=== PATIENT | male | born 1930 | race Caucasian/White ===

== ENCOUNTER 2016-07-17 17:55 | Emergency (ER) | payer MEDICARE, OTHER ==
[~2016-07-17] VITALS: Ht 175.3 cm; Wt 77.0 kg
[~2016-07-17 17:55] MED LIST: ASPI81TA82 PO; ATOR20TA42 PO; CALC600T44 PO; FEXO180 PO; GLUC500C3 PO; JALYCAP PO; MULT-65 PO
[2016-07-17 18:04] VITALS: BP 116/70; PULSE 81; RESP 16; TEMP 97.8; O2SAT 97
[2016-07-17] MEDS ORDERED: ASPI81CH CHEW (18:17)
[2016-07-17] MEDS ORDERED: CELE200C PO (18:17)
[2016-07-17] MEDS ORDERED: FEXO15TA PO (18:17)
[2016-07-17] MEDS ORDERED: JALYCAP PO (18:17)
[2016-07-17] MEDS ORDERED: LIPI20TA PO (18:17)
[2016-07-17] MEDS ORDERED: ERYTOIN10 EACH EYE (19:03)
--- NOTE | 2016-07-17 19:03 | PD ---
HPI Chief Complaint: Eye Problems/Injury Time Seen by Provider: 18:45 Travel History International Travel<30 days: No Contact w/Intl Traveler<30days: No Traveled to known affect area: No History of Present Illness HPI 86-year-old male presents to the emergency room for evaluation of bilateral eye itchiness, copious purulent drainage, and redness for the past 2 days. Symptoms started simultaneously. States he has history of hayfever and was outside all day 4 days ago but symptoms did not start until 2 days after that. This morning when he woke up, they were practically glued shut. He has been applying [id number] Visine. Patient denies eye pain, photophobia, or changes in visual acuity. Patient has history of macular degeneration of the right eye and previous cataract surgery. States he has difficulty seeing at baseline and vision is no worse today than normal. He does not wear contacts. PFSH Past Medical History Heart Rhythm Problems: No Cancer: Yes (skin) Cardiac Catheterization: No Cardiovascular Problems: No High Cholesterol: Yes Congestive Heart Failure: No Diabetes: No Diminished Hearing: No Endocrine: No Glaucoma: No Genitourinary: No Hepatitis: No Hiatal Hernia: No Hypertension: No Immune Disorder: No Medical other: Yes (ARTHRITIS) Musculoskeletal: Yes Neurologic: No Reproductive: No Respiratory: No Immunizations Current: Yes Thyroid Disease: No Tetanus Vaccination: < 5 Years Influenza Vaccination: Yes Past Surgical History Abdominal Surgery: No AICD: No Body Medical Devices: SCREW RIGHT RING FINGER Cardiac Surgery: No Coronary Artery Bypass Graft: No Ear Surgery: No Endocrine Surgery: No Eye Surgery: No Genitourinary Surgery: Yes (TURP) Gynecologic Surgery: No Joint Replacement: No Oral Surgery: Yes (T&A) Pacemaker: No Thoracic Surgery: No Other Surgery: Yes Social History Alcohol Use: Yes (1 DRINK PER EVENING) Tobacco Use: No Substance Use: No Allergies-Medications (Allergen,Severity, Reaction): Coded Allergies: Contrast Media (Verified Allergy, Severe, Anaphylaxis, 07/17/16) Reported Meds & Prescriptions Reported Meds & Active Scripts Active Erythromycin Opth Oint 5 Mg/Gm Oint 1 Applic EACH EYE Q6HR Reported Brianne (Dutasteride-Tamsulosin) 0.5-0.4 Mg Cap 1 Cap PO DAILY Aspirin 81 Mg Chew 81 Mg CHEW DAILY Celebrex (Celecoxib) 200 Mg Cap 200 Mg PO BID Lipitor (Atorvastatin Calcium) 20 Mg Tab 20 Mg PO HS Radha Allergy (Fexofenadine HCl) 180 Mg Tab 180 Mg PO DAILY Review of Systems Except as stated in HPI: all other systems reviewed are Neg Physical Exam Narrative GENERAL: Well-nourished, well-developed male in no acute distress. Afebrile. Ambulatory. SKIN: Warm and dry. HEAD: Normocephalic. EYES: PERRL, EOMI. No scleral icterus. Bilateral injection, right worse than left. Bilateral purulent, green colored discharge, right worse than left. Fluorescein staining reveals no foreign body, corneal abrasion, or corneal ulceration. There is mild bilateral lower lid edema. Visual acuity is 20/40 in the left and 20/200 in the right. NECK: Supple, trachea midline. No JVD or lymphadenopathy. Data Data Last Documented VS Vital Signs Date Time Temp Pulse Resp B/P Pulse Ox O2 Delivery O2 Flow Rate FiO2 07/17/16 18:04 97.8 81 16 116/70 97 MDM Medical Decision Making Medical Screen Exam Complete: Yes Emergency Medical Condition: Yes Medical Record Reviewed: Yes Differential Diagnosis Allergic Conjunctivitis versus bacterial conjunctivitis versus scleritis Narrative Course 86-year-old male presents to the emergency room for evaluation of bilateral eye redness, drainage, and irritation/itchiness for the past 2 days. Will consult with his eyes glued shut this morning. Patient has history of hayfever and spent all day outside prior to onset of symptoms. Physical exam reveals bilateral injection and green purulent drainage, right worse than left. No evidence of foreign body, corneal abrasion, or ulceration. Visual acuity is 20/ 40 in the left and 20/200 in the right which is baseline for patient. No photophobia on exam. EOMI without pain. History and physical exam are most consistent with allergic conjunctivitis. Patient will be treated empirically for bacterial conjunctivitis with erythromycin eye ointment. Told to follow up with a primary care physician and/or customer engagement manager or return for worsening symptoms. He understands and agrees to plan. Diagnosis Primary Impression: Conjunctivitis Qualified Code: H10.33 - Acute conjunctivitis of both eyes, unspecified acute conjunctivitis type Referrals: [employer] [employer] Primary Care Physician Patient Instructions: Conjunctivitis (ED), General Instructions Additional Instructions: Rest and drink plenty of fluids. Use ointment as directed for 7 days. Follow-up with a primary care physician and/or customer engagement manager. Return to the emergency room for worsening symptoms. Med/Other Pt SpecificInfo: Prescription(s) given Scripts Erythromycin Opth Oint 5 Mg/Gm Oint1 Applic EACH EYE Q6HR #1 TUBE Ref 0 Prov:Mikael Mijares MD 07/17/16 Disposition: 01 DISCHARGE HOME Condition: Stable Moraima Montesinos Jul 17, 2016 19:03
== END 2016-07-17 19:13 | disposition home or self-care (01) ==
LOC: PHEFT 17:55
DX: H10.33 Unspecified acute conjunctivitis, bilateral (principal)
CPT/HCPCS: 99282

== ENCOUNTER → 2016-12-03 | Outpatient (CLI) | payer MEDICARE, OTHER ==
[~2016-12-03] MED LIST changes: +ASPI81CH CHEW; -ASPI81TA82 PO; -ATOR20TA42 PO; -CALC600T44 PO; +CELE200C PO; +ERYTOIN10 EACH EYE; +FEXO15TA PO; -FEXO180 PO; -GLUC500C3 PO; +LIPI20TA PO; -MULT-65 PO
[2016-12-03 09:14] LABS: AUTOMATED NEUTROPHIL # 3.8 TH/MM3 (1.8-7.7); BASOPHIL % 0.4 % (0.0-2.0); EOSINOPHIL # 0.1 TH/MM3 (0-0.4); EOSINOPHIL % 1.6 % (0.0-4.0); HEMATOCRIT 39.7 % (39.0-51.0); HEMO FLAGS DIFF FINAL; LYMPH % 25.3 % (9.0-44.0); LYMPHOCYTE # 1.6 TH/MM3 (1.0-4.8); MEAN CELL VOLUME 94.4 FL (80.0-100.0); MEAN CORPUSCULAR HEMOGLOBIN 31.9 PG (27.0-34.0); MEAN CORPUSCULAR HGB CONC 33.8 % (32.0-36.0); NEUT % 60.7 % (16.0-70.0); PLATELET COUNT 169 TH/MM3 (150-450); RED BLOOD COUNT 4.21 MIL/MM3 (4.50-5.90); RED CELL DISTRIBUTION WIDTH 13.8 % (11.6-17.2); WHITE BLOOD COUNT 6.3 TH/MM3 (4.0-11.0)
[2016-12-03 09:43] LABS: ANION GAP 7 MEQ/L (5-15); BICARBONATE 27.9 MEQ/L (21.0-32.0); BLOOD UREA NITROGEN 17 MG/DL (7-18); CHLORIDE 106 MEQ/L (98-107); GLOMERULAR FILTRATION RATE 61 ML/MIN (>89); GLUCOSE,FASTING 92 MG/DL (74-99); SODIUM (NA) 141 MEQ/L (136-145)
[2016-12-03 09:49] LABS: ALKALINE PHOSPHATASE 62 U/L (45-117); ALT (GPT) 23 U/L (12-78); AST (GOT) 27 U/L (15-37); HDL CHOLESTEROL 55.2 MG/DL (40.0-60.0); LDL CHOLESTEROL 67 MG/DL (0-99); TOTAL BILIRUBIN ADULT 0.8 MG/DL (0.2-1.0)
== END ==
LOC: PLAB 06:51
PROVIDERS: ATTEND Family Medicine
DX: E78.2 Mixed hyperlipidemia (principal); Z79.899 Other long term (current) drug therapy
CPT/HCPCS: 36415; 80053; 80061; 85025

== ENCOUNTER → 2017-03-20 | Outpatient (CLI) | payer MEDICARE, OTHER | LOC: PHSDC 09:06 | PROVIDERS: ATTEND Ophthalmology | DX: H26.491 Other secondary cataract, right eye (principal); M81.0 Age-related osteoporosis without current pathological fracture; H43.813 Vitreous degeneration, bilateral; Z96.1 Presence of intraocular lens; H35.3230 Exudative age-related macular degeneration, bilateral, stage unspecified; B02.9 Zoster without complications; Z85.828 Personal history of other malignant neoplasm of skin ==

== ENCOUNTER → 2017-04-10 | Outpatient (CLI) | payer MEDICARE, OTHER ==
--- NOTE | 2017-03-18 14:56 | MH ---
cc: BAILEE CORREA DATE OF ADMISSION: 04/10/2017 ADMISSION DIAGNOSIS Cloudy posterior capsule. right eye. HISTORY OF PRESENT ILLNESS This 87-year-old white male is coming through [facility] for the purpose of a YAG laser posterior capsulotomy of the right eye. He is status post cataract surgery with intraocular lens implant on the right eye in 2014. He has done well postoperatively but now notices decreasing visual acuity and was found to have a cloudy posterior capsule in the right eye. He has elected to have a YAG laser posterior capsulotomy at this time in the right eye. 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 PAST MEDICAL HISTORY The patient has a history of cholesterol problems, arthritis, osteoporosis, allergies, hernia on the left side, shingles on the right arm, chest, underarm and back. PAST SURGICAL HISTORY 1. Tonsillectomy. 2. Prostate surgery. 3. Colonoscopy. 4. Skin cancer surgery. 5. Finger surgery. 6. Pterygiectomy, both eyes. 7. The above-mentioned cataract surgery in the right eye. 8. Basal cell carcinoma removal on the left leg. 9. Hernia repair. MEDICATIONS Daily medications include: 1. Lipitor. 2. Brianne. 3. Celebrex. 4. Radha. 5. Baby aspirin. 6. Multivitamins. 7. Calcium. 8. Vitamin-D. 9. Glucosamine. 10. AREDS 2 ocular vitamins. ALLERGIES HE IS ALLERGIC TO IV IODINE. FAMILY HISTORY, SOCIAL HISTORY, REVIEW OF SYSTEMS Noncontributory. OCULAR EXAMINATION On ocular exam the patient's best-corrected visual acuity is 20/200 in the right eye and 20/40 in the left. Visual botello are full to confrontation testing. Extraocular muscle exam reveals full versions with orthophoria at distance and near. Pupils are 3.5 mm in the right eye, 2.5 mm in the left, round and reactive to light without afferent defect. Anterior segment examination shows the patient to be status post pterygiectomy in both eyes and there are some corneal opacities on the left cornea. A posterior chamber intraocular lens in place in the right eye with a cloudy posterior capsule. Nuclear sclerotic and cortical cataract changes are present in the left eye. Intraocular pressure is 10 in the right eye and 14 in the left by applanation tonometry. Dilated fundus exam reveals sharp disks with cup-to-disk ratio of 0.3 in the right eye and 0.4 in the left. There is an epiretinal membrane in the right eye and retinal pigment epithelial changes as well. There is some granularity in the left macula. A posterior vitreous detachment is present in both eyes. An atrophic area is noted and pigmentary changes inferiorly in both eyes. 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 IMPRESSION 1. Cloudy posterior capsule, right eye. 2. Pseudophakia, right eye. 3. Cataract, left eye. 4. Posterior vitreous detachment, both eyes. 5. Epiretinal membrane, right macula. 6. 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 PLAN YAG laser posterior capsulotomy of the right eye through [facility]. MD GABRIELLE Aguirre/FLORIDALMA /1:35 PM /2:53 PM ALE
[~2017-04-10] MED LIST changes: +FLUOROMETHOLONE 0.25% OPHT SUSP 5 ML BTL RIGHT EYE ONE; +PHENYLEPHRINE HCL 2.5% OPTH SOLN 2 ML BTL RIGHT EYE ONE; +PROPARACAINE HCL 0.5% OPHT SOLN 15 ML BTL RIGHT EYE ONE; +TROPICAMIDE 1% OPHT SOLN 15 ML BTL RIGHT EYE ONE
--- NOTE | 2017-04-10 08:57 | MP ---
cc: BAILEE LUNA DATE OF SURGERY: 04/10/2017 PREOPERATIVE DIAGNOSIS Cloudy posterior capsule, right eye. POSTOPERATIVE DIAGNOSIS Cloudy posterior capsule, right eye. OPERATION YAG laser posterior capsulotomy, right eye. SURGEON Bailee Luna MD ANESTHESIA Topical. COMPLICATIONS None. INDICATIONS See history and physical previously dictated. PROCEDURE The patient arrived at the [facility]. Blood pressure 112/72, pulse 57, respirations 16. A drop of Alphagan P and Mydriacyl were instilled in the right eye. The patient was seated at the YAG laser. A drop of Alcaine was instilled in the right eye and a YAG laser posterior capsulotomy lens was placed on the anterior surface of the right cornea. YAG laser posterior capsulotomy was carried out utilizing 56 exposures of 1.6 millijoules. An adequate opening was seen following the procedure. A drop of Alphagan P was instilled topically. The patient was given a prescription for a topical steroid to be used four times per day and has an appointment for follow up on the first postoperative day in my office. [facility]. Bailee Luna MD STEWARD/STEWARDESS/BT /8:26 AM /8:48 AM .2
== END ==
LOC: PHSDC 07:12
PROVIDERS: ATTEND Ophthalmology
DX: H26.491 Other secondary cataract, right eye (principal)

== ENCOUNTER → 2017-07-02 | Outpatient (CLI) | payer MEDICARE ==
[~2017-07-02] MED LIST changes: +ASPI-516 CHEW; -ASPI81CH CHEW; -FLUOROMETHOLONE 0.25% OPHT SUSP 5 ML BTL RIGHT EYE ONE; -PHENYLEPHRINE HCL 2.5% OPTH SOLN 2 ML BTL RIGHT EYE ONE; -PROPARACAINE HCL 0.5% OPHT SOLN 15 ML BTL RIGHT EYE ONE; -TROPICAMIDE 1% OPHT SOLN 15 ML BTL RIGHT EYE ONE
[2017-07-02 13:49] LABS: DIRECT BILIRUBIN ADULT 0.2 MG/DL (0.0-0.2)
[2017-07-02 15:59] LABS: CHOLESTEROL/ HDL RATIO 2.45 RATIO; HDL CHOLESTEROL 65.1 MG/DL (40.0-60.0); INDIRECT BILIRUBIN 0.4 MG/DL (0.0-0.8); TOTAL BILIRUBIN ADULT 0.6 MG/DL (0.2-1.0); TOTAL PROTEIN 7.5 GM/DL (6.4-8.2)
== END ==
LOC: PLAB 10:28
PROVIDERS: ATTEND Family Medicine
DX: E78.2 Mixed hyperlipidemia (principal); Z79.899 Other long term (current) drug therapy
CPT/HCPCS: 36415; 80061; 80076

== ENCOUNTER → 2017-11-26 | Outpatient (CLI) | payer MEDICARE ==
[2017-11-26 10:10] LABS: AUTOMATED NEUTROPHIL # 3.3 TH/MM3 (1.8-7.7); BASOPHIL % 0.5 % (0.0-2.0); EOSINOPHIL # 0.1 TH/MM3 (0-0.4); EOSINOPHIL % 2.3 % (0.0-4.0); HEMATOCRIT 41.2 % (39.0-51.0); HEMOGLOBIN 13.8 GM/DL (13.0-17.0); LYMPH % 24.9 % (9.0-44.0); LYMPHOCYTE # 1.4 TH/MM3 (1.0-4.8); MEAN CELL VOLUME 94.7 FL (80.0-100.0); MEAN CORPUSCULAR HEMOGLOBIN 31.7 PG (27.0-34.0); MEAN CORPUSCULAR HGB CONC 33.5 % (32.0-36.0); MEAN PLATELET VOLUME 8.4 FL (7.0-11.0); MONO % 12.9 % (0.0-8.0); MONOCYTE # 0.7 TH/MM3 (0-0.9); NEUT % 59.4 % (16.0-70.0); PLATELET COUNT 186 TH/MM3 (150-450); RED BLOOD COUNT 4.35 MIL/MM3 (4.50-5.90); RED CELL DISTRIBUTION WIDTH 13.5 % (11.6-17.2); WHITE BLOOD COUNT 5.6 TH/MM3 (4.0-11.0)
[2017-11-26 10:31] LABS: ALBUMIN 4.2 GM/DL (3.4-5.0); AST (GOT) 24 U/L (15-37); BICARBONATE 25.9 MEQ/L (21.0-32.0); BLOOD UREA NITROGEN 19 MG/DL (7-18); CALCIUM 8.9 MG/DL (8.5-10.1); CHLORIDE 107 MEQ/L (98-107); CREATININE 1.24 MG/DL (0.60-1.30); GLOMERULAR FILTRATION RATE 55 ML/MIN (>89); GLUCOSE,FASTING 95 MG/DL (74-99); SODIUM (NA) 142 MEQ/L (136-145)
[2017-11-26 10:32] LABS: CHOLESTEROL 154 MG/DL (120-200)
[2017-11-26 10:38] LABS: ALKALINE PHOSPHATASE 61 U/L (45-117); ALT (GPT) 21 U/L (12-78); HDL CHOLESTEROL 51.3 MG/DL (40.0-60.0); LDL CHOLESTEROL 73 MG/DL (0-99); TOTAL BILIRUBIN ADULT 0.5 MG/DL (0.2-1.0); TOTAL PROTEIN 7.5 GM/DL (6.4-8.2); TRIGLYCERIDES 151 MG/DL (42-150)
== END ==
LOC: PLAB 06:44
PROVIDERS: ATTEND Family Medicine
DX: E78.2 Mixed hyperlipidemia (principal); Z79.899 Other long term (current) drug therapy
CPT/HCPCS: 36415; 80053; 80061; 85025